=== PATIENT | male | born 1970 | race African-American/Black ===

== ENCOUNTER 2019-09-01 13:08 | Emergency (ER) | payer MEDICAID ==
[~2019-09-01] VITALS: Ht 172.7 cm; Wt 74.8 kg
--- NOTE | 2019-09-01 13:12 | NUR ---
Patient to ER bed 03 to gown for evaluation. Side rails up.
[2019-09-01 13:13] VITALS: BP_SYST 164
--- NOTE | 2019-09-01 13:20 | NUR ---
Patient brought in by BLS with c/o constipation for 3 hours. Patient complaining of abdominal pain and rates pain level 7/10. Patient noted to be crying/moaning at this time. Patient asking to see the physician. Patient in no signs of acute distress.
--- NOTE | 2019-09-01 13:24 | NUR ---
Pt moved to bed 05
--- NOTE | 2019-09-01 13:24 | NUR ---
Dr. Jade at bedside for examination.
[2019-09-01] MEDS ORDERED: KETOROLAC TROMETHAMINE 60 MG/2 ML VIAL IM ONE (13:30)
[2019-09-01] MEDS ORDERED: MAGNESIUM CITRATE 300 ML ORAL SOLUTION PO ONE (15:00)
--- NOTE | 2019-09-01 15:00 | NUR ---
Patient resting in bed at this time. No signs of distress noted.
[2019-09-01 16:18] VITALS: BP_SYST 155
--- NOTE | 2019-09-01 16:22 | NUR ---
Patient given written and verbal discharge instructions and verbalizes understanding. ER MD discussed with patient the results and treatment provided. Patient in stable condition. ID arm band removed. Rx of magnesium citrate given. Patient educated on pain management and to follow up with PMD. Pain Scale 0/10.Opportunity for questions provided and answered. Medication side effect fact sheet provided.
== END 2019-09-01 16:18 | disposition home or self-care (01) ==
LOC: SED 13:08
DX: K59.00 Constipation, unspecified (principal); I10 Essential (primary) hypertension; I50.9 Heart failure, unspecified; Z93.0 Tracheostomy status; Z86.79 Personal history of other diseases of the circulatory system
CPT/HCPCS: 74018; 96372; 99283; J1885

== ENCOUNTER 2024-04-01 09:34 | Emergency (ER) | payer MEDICAID, OTHER ==
[~2024-04-01] VITALS: Ht 175.3 cm; Wt 73.5 kg
[2024-04-01 09:47] VITALS: BP_SYST 156; PULSE 76; RESP 15; TEMP 98.1; O2SAT 97
[2024-04-01 12:04] VITALS: BP_SYST 156; PULSE 76; RESP 15; TEMP 98.1; O2SAT 97
== END 2024-04-01 11:42 | disposition home or self-care (01) ==
LOC: SED 09:34
DX: Z46.6 Encounter for fitting and adjustment of urinary device (principal)
CPT/HCPCS: 99281